=== PATIENT | female | born 1945 | race Caucasian/White ===

== ENCOUNTER 2016-08-05 10:08 | Inpatient (IN) | payer MEDICARE ==
[~2016-08-05 10:08] MED LIST: AMIODARONE HCL200 M1 PO; ASPIR 8181 M1 PO; ATORVASTATIN CA80 M1 PO; AUGMENTIN 875-1 EAC2 PO; AUGMENTIN875 MG PO; BENADRYL25 M3 PO; BYSTOLIC10 M1 PO; BYSTOLIC20 M1 PO; CELEBREX200 MG PO; CETIRIZINE HCL10 M1 PO; CHLORTHALIDONE25 M1 PO; COMPAZINE10 MG PO; CRESTOR10 MG/TAB PO; CULTURELLE1 CA1 PO; CYCLOBENZAPRINE5 M1 PO; DULOXETINE HCL60 M1 PO; HYDROCODON-ACE1 EA16 PO; LINZESS145 MC1 PO; LOSARTAN POTAS100 M1 PO; LOSARTAN POTASS50 M1 PO; LOSARTAN-HCTZ1 EAC1 PO; LOVENOX40 MG/0.1 SC; MELOXICAM15 MG PO; METFORMIN HCL1000 M1 PO; METFORMIN HCL500 M4 PO; METOPROLOL SUCC25 M1 PO; NORCO 5-325 TA1 EACH PO; NORCO 5/325 TAB1 TAB PO; NORCO 5/3251 TAB PO; NORVASC10 M1 PO; OXYCODONE/APAP PO; POTASSIUM CHLO10 MEQ PO; POTASSIUM CHLO20 ME3 PO; PROTONIX40 M2 PO; SENOKOT-S TABL1 EACH PO; SMZ-TMP DS 800-1 TAB PO; TORSEMIDE20 M2 PO; TRAMADOL HCL50 M2 PO; TRILIPIX135 MG PO; TYLENOL325 M2 PO; ULTRAM50 M1 PO; XARELTO15 MG PO; XARELTO20 M1 PO; XARELTO20 MG PO; ZIAC PO; ZOFRAN8 M1 PO; [UNRECOGNIZED DRUG - OTHER] PO
[2016-08-05] MEDS ORDERED: SENOKOT8.6 M1 PO (12:58)
[2016-08-05] MEDS ORDERED: COZAAR100 M1 PO (12:58)
[2016-08-05] MEDS ORDERED: PROTONIX40 M2 PO (12:58)
[2016-08-06 05:17] LABS: BASO % 0.4 % (0-2); EOS % 0.8 % (0-7); HGB-HEMOGLOBIN 6.9 gm/dl (12.0-15.5); IMMATURE GRANULOCYTES ABSOLUTE 0.01 tho/cmm (0-0.03); IMMATURE GRANULOCYTES PERCENT 0.4 % (0-0.3); LYMPH % 13.3 % (20-45); LYMPH ABSOLUTE COUNT 0.4 tho/cmm (0.8-4.5); MCH (MEAN CORPUSCULAR HGB) 26.4 pg (28.0-32.0); MCV (MEAN CELL VOLUME) 84.7 fl (82.0-96.0); MEAN PLATELET VOLUME 11.4 cmc (9.4-12.4); MONO % 17.9 % (0-12); MONOCYTE ABSOLUTE COUNT 0.5 tho/cmm (0.0-1.2); NEUTROPHIL ABSOLUTE COUNT 1.8 tho/cmm (1.6-8.0); NEUTROPHIL-AUTOMATED 1.8 tho/cmm (1.6-8.0); NEUTROPHILS % 67.2 % (40-80); PLATELET COUNT 100 tho/cmm (150-450); RED BLOOD COUNT 2.61 mil/cmm (4.00-5.20); RED CELL DISTRIBUTION WIDTH 16.8 % (12.4-16.4); WHITE BLOOD COUNT 2.6 tho/cmm (4.0-10.0)
[2016-08-06 05:24] LABS: INR 1.5 INR (0.9-1.1); PROTHROMBIN TIME 17.5 SECONDS (9.0-13.6)
[2016-08-06 05:31] LABS: ALT/SGPT 13 U/L (12-78); ANION GAP 14 mmol/L (0-20); BLOOD UREA NITROGEN 16 mg/dl (6-24); CALCIUM 7.3 mg/dl (8.5-10.5); CARBON DIOXIDE-VENOUS 24 mmol/L (22-32); CHLORIDE 108 mmol/l (96-110); GLUCOSE 118 mg/dL (70-110); POTASSIUM 3.1 mmol/L (3.7-5.1); SODIUM 143 mmol/L (135-145)
[2016-08-06 05:33] LABS: ALB/GLOB RATIO 0.7 (0.8-2.0); ALKALINE PHOSPHATASE 109 U/L (33-138); AST/SGOT 18 U/L (10-40); BILIRUBIN,TOTAL 0.9 mg/dl (0-1.5); CREATININE 0.87 mg/dl (0.50-1.10); eGFR VALUE FOR BLACK 79 mL/Min
[2016-08-06 05:37] LABS: ALBUMIN 1.6 g/dl (3.5-5.0)
[2016-08-06 05:42] LABS: HCT-HEMATOCRIT 22.1 % (34.0-49.0); MCHC MEAN CORPUSCULAR HGB CONC 31.2 % (32.0-36.0)
[2016-08-06 15:15] LABS: HGB-HEMOGLOBIN 8.8 gm/dl (12.0-15.5)
[2016-08-07 06:28] LABS: BASO % 0.2 % (0-2); HGB-HEMOGLOBIN 9.2 gm/dl (12.0-15.5); IMMATURE GRANULOCYTES ABSOLUTE 0.01 tho/cmm (0-0.03); IMMATURE GRANULOCYTES PERCENT 0.2 % (0-0.3); LYMPH % 10.5 % (20-45); LYMPH ABSOLUTE COUNT 0.5 tho/cmm (0.8-4.5); MCH (MEAN CORPUSCULAR HGB) 26.7 pg (28.0-32.0); MCHC MEAN CORPUSCULAR HGB CONC 31.3 % (32.0-36.0); MCV (MEAN CELL VOLUME) 85.2 fl (82.0-96.0); MEAN PLATELET VOLUME 11.2 cmc (9.4-12.4); MONO % 9.8 % (0-12); MONOCYTE ABSOLUTE COUNT 0.5 tho/cmm (0.0-1.2); NEUTROPHIL ABSOLUTE COUNT 3.6 tho/cmm (1.6-8.0); NEUTROPHIL-AUTOMATED 3.6 tho/cmm (1.6-8.0); NEUTROPHILS % 79.3 % (40-80); PLATELET COUNT 112 tho/cmm (150-450); RED BLOOD COUNT 3.45 mil/cmm (4.00-5.20); RED CELL DISTRIBUTION WIDTH 16.7 % (12.4-16.4)
[2016-08-07 06:38] LABS: HCT-HEMATOCRIT 29.4 % (34.0-49.0); WHITE BLOOD COUNT 4.6 tho/cmm (4.0-10.0)
[2016-08-07 07:00] LABS: ANION GAP 13 mmol/L (0-20); BLOOD UREA NITROGEN 15 mg/dl (6-24); CALCIUM 7.8 mg/dl (8.5-10.5); CARBON DIOXIDE-VENOUS 23 mmol/L (22-32); CHLORIDE 111 mmol/l (96-110); CREATININE 0.91 mg/dl (0.50-1.10); GLUCOSE 151 mg/dL (70-110); POTASSIUM 3.6 mmol/L (3.7-5.1); SODIUM 143 mmol/L (135-145); eGFR VALUE FOR BLACK 75 mL/Min
[2016-08-08 04:59] LABS: BASO % 0.2 % (0-2); EOS % 0.2 % (0-7); HCT-HEMATOCRIT 26.5 % (34.0-49.0); HGB-HEMOGLOBIN 8.4 gm/dl (12.0-15.5); IMMATURE GRANULOCYTES ABSOLUTE 0.01 tho/cmm (0-0.03); IMMATURE GRANULOCYTES PERCENT 0.2 % (0-0.3); LYMPH ABSOLUTE COUNT 0.6 tho/cmm (0.8-4.5); MCH (MEAN CORPUSCULAR HGB) 27.1 pg (28.0-32.0); MCHC MEAN CORPUSCULAR HGB CONC 31.7 % (32.0-36.0); MCV (MEAN CELL VOLUME) 85.5 fl (82.0-96.0); MEAN PLATELET VOLUME 11.1 cmc (9.4-12.4); MONO % 12.6 % (0-12); MONOCYTE ABSOLUTE COUNT 0.6 tho/cmm (0.0-1.2); NEUTROPHIL ABSOLUTE COUNT 3.6 tho/cmm (1.6-8.0); NEUTROPHIL-AUTOMATED 3.6 tho/cmm (1.6-8.0); NEUTROPHILS % 74.8 % (40-80); PLATELET COUNT 107 tho/cmm (150-450); RED CELL DISTRIBUTION WIDTH 16.8 % (12.4-16.4); WHITE BLOOD COUNT 4.8 tho/cmm (4.0-10.0)
[2016-08-08] MEDS ORDERED: CARAFATE1 G2 PO (09:44)
[2017-02-23] MEDS ORDERED: ULTRAM50 M1 PO (16:22)
[2017-02-23] MEDS ORDERED: SILVADENE20 G1 TOP (16:22)
[2017-02-23] MEDS ORDERED: CYMBALTA60 M1 PO (16:22)
[2017-03-03] MEDS ORDERED: IPRAT-ALBUT 0.5-3 ML NEB (12:27)
[2017-03-03] MEDS ORDERED: FEOSOL325 M1 PO (12:29)
[2017-03-03] MEDS ORDERED: ELIQUIS5 M1 PO (12:29)
[2017-03-03] MEDS ORDERED: COLACE100 M1 PO (12:31)
== END 2016-08-08 11:20 | DRG 300 ==
LOC: PCUB 10:08
PROVIDERS: Hospitalist; Internal Medicine; Nurse Practitioner; ADMIT Internal Medicine
PROC: 30233N1 Transfusion of Nonautologous Red Blood Cells into Peripheral Vein, Percutaneous Approach (ICD-10-PCS; 2016-08-05)
PROC: 0DJ08ZZ Inspection of Upper Intestinal Tract, Via Natural or Artificial Opening Endoscopic (ICD-10-PCS; principal; 2016-08-06)
PROC: 0W3P8ZZ Control Bleeding in Gastrointestinal Tract, Via Natural or Artificial Opening Endoscopic (ICD-10-PCS; 2016-08-06)
PROC: 30233N1 Transfusion of Nonautologous Red Blood Cells into Peripheral Vein, Percutaneous Approach (ICD-10-PCS; 2016-08-06)
PROC: 30233N1 Transfusion of Nonautologous Red Blood Cells into Peripheral Vein, Percutaneous Approach (ICD-10-PCS; 2016-08-06)
DX: Q27.33 Arteriovenous malformation of digestive system vessel (principal); D62 Acute posthemorrhagic anemia; E46 Unspecified protein-calorie malnutrition; D61.818 Other pancytopenia; D69.6 Thrombocytopenia, unspecified; C23 Malignant neoplasm of gallbladder; Z68.41 Body mass index [BMI] 40.0-44.9, adult; I48.0 Paroxysmal atrial fibrillation; E87.6 Hypokalemia; D64.9 Anemia, unspecified; E66.09 Other obesity due to excess calories; I25.10 Atherosclerotic heart disease of native coronary artery without angina pectoris; Z79.01 Long term (current) use of anticoagulants; I25.2 Old myocardial infarction; Z86.718 Personal history of other venous thrombosis and embolism; Z86.711 Personal history of pulmonary embolism; Z85.41 Personal history of malignant neoplasm of cervix uteri
CPT/HCPCS: C1751; C9113; J3480; P9016

== ENCOUNTER 2016-08-23 14:06 | Inpatient (IN) | payer MEDICARE ==
[~2016-08-23 14:06] MED LIST changes: +CARAFATE1 G2 PO; +COZAAR100 M1 PO; +SENOKOT8.6 M1 PO
[2016-08-23] MEDS ORDERED: TOPROL XL25 M1 PO (18:14)
[2016-08-23] MEDS ORDERED: AMIODARONE HCL200 M1 PO (18:15)
[2016-08-23] MEDS ORDERED: GLUCOPHAGE500 M3 PO (18:16)
[2016-08-23] MEDS ORDERED: CHLORTHALIDONE25 M1 PO (18:27)
[2016-08-24 06:55] LABS: BASO % 0.2 % (0-2); EOS % 2.2 % (0-7); EOSINOPHIL ABSOLUTE COUNT 0.1 tho/cmm (0.0-0.7); HCT-HEMATOCRIT 28.5 % (34.0-49.0); HGB-HEMOGLOBIN 8.6 gm/dl (12.0-15.5); IMMATURE GRANULOCYTES ABSOLUTE 0.01 tho/cmm (0-0.03); IMMATURE GRANULOCYTES PERCENT 0.2 % (0-0.3); LYMPH % 13.2 % (20-45); LYMPH ABSOLUTE COUNT 0.6 tho/cmm (0.8-4.5); MCH (MEAN CORPUSCULAR HGB) 25.1 pg (28.0-32.0); MCHC MEAN CORPUSCULAR HGB CONC 30.2 % (32.0-36.0); MCV (MEAN CELL VOLUME) 83.1 fl (82.0-96.0); MEAN PLATELET VOLUME 9.5 cmc (9.4-12.4); MONO % 8.2 % (0-12); MONOCYTE ABSOLUTE COUNT 0.3 tho/cmm (0.0-1.2); NEUTROPHIL ABSOLUTE COUNT 3.2 tho/cmm (1.6-8.0); NEUTROPHIL-AUTOMATED 3.2 tho/cmm (1.6-8.0); PLATELET COUNT 161 tho/cmm (150-450); RED BLOOD COUNT 3.43 mil/cmm (4.00-5.20); RED CELL DISTRIBUTION WIDTH 16.6 % (12.4-16.4); WHITE BLOOD COUNT 4.2 tho/cmm (4.0-10.0)
[2016-08-24 07:05] LABS: ALB/GLOB RATIO 0.5 (0.8-2.0); ALBUMIN 1.5 g/dl (3.5-5.0); ALKALINE PHOSPHATASE 121 U/L (33-138); ALT/SGPT 16 U/L (12-78); ANION GAP 10 mmol/L (0-20); AST/SGOT 20 U/L (10-40); BILIRUBIN,TOTAL 0.8 mg/dl (0-1.5); BLOOD UREA NITROGEN 13 mg/dl (6-24); CALCIUM 7.6 mg/dl (8.5-10.5); CARBON DIOXIDE-VENOUS 26 mmol/L (22-32); CHLORIDE 115 mmol/l (96-110); CREATININE 0.95 mg/dl (0.50-1.10); GLUCOSE 117 mg/dL (70-110); POTASSIUM 3.8 mmol/L (3.7-5.1); SODIUM 147 mmol/L (135-145); eGFR VALUE FOR BLACK 71 mL/Min
[2016-08-24] MEDS ORDERED: CYMBALTA60 M1 PO (10:13)
[2016-08-25 15:44] LABS: BODY FLUID APPEARANCE CLOUDY (CLEAR); BODY FLUID COLOR YELLOW (COLORLESS); BODY FLUID RBC COUNT <1000 cmm (0); BODY FLUID VOLUME 1000 ml; BODY FLUID WBC COUNT 40 cmm
[2016-08-26 09:18] LABS: BODY FLUID TYPE ASCITIC; FLUID ALBUMIN <0.6 g/dl
[2016-08-27 05:32] LABS: HGB-HEMOGLOBIN 8.5 gm/dl (12.0-15.5); PLATELET COUNT 169 tho/cmm (150-450)
[2016-08-27 05:52] LABS: ANION GAP 11 mmol/L (0-20); BLOOD UREA NITROGEN 14 mg/dl (6-24); CALCIUM 7.5 mg/dl (8.5-10.5); CARBON DIOXIDE-VENOUS 30 mmol/L (22-32); CHLORIDE 104 mmol/l (96-110); CREATININE 0.96 mg/dl (0.50-1.10); GLUCOSE 120 mg/dL (70-110); MAGNESIUM 1.4 mg/dl (1.3-2.6); SODIUM 142 mmol/L (135-145); eGFR VALUE FOR BLACK 70 mL/Min
[2016-08-27] MEDS ORDERED: ALDACTONE25 M1 PO (14:24)
[2016-08-27] MEDS ORDERED: LASIX40 M1 PO (14:40)
[2017-02-23] MEDS ORDERED: ULTRAM50 M1 PO (16:22)
[2017-02-23] MEDS ORDERED: CYMBALTA60 M1 PO (16:22)
[2017-02-23] MEDS ORDERED: SILVADENE20 G1 TOP (16:22)
[2017-03-03] MEDS ORDERED: IPRAT-ALBUT 0.5-3 ML NEB (12:27)
[2017-03-03] MEDS ORDERED: ELIQUIS5 M1 PO (12:29)
[2017-03-03] MEDS ORDERED: FEOSOL325 M1 PO (12:29)
[2017-03-03] MEDS ORDERED: COLACE100 M1 PO (12:31)
== END 2016-08-27 19:45 | DRG 948 ==
LOC: 5WE 14:06
PROVIDERS: ADMIT Internal Medicine
PROC: 0W9G3ZX Drainage of Peritoneal Cavity, Percutaneous Approach, Diagnostic (ICD-10-PCS; principal; 2016-08-25)
DX: R18.8 Other ascites (principal); R64 Cachexia; C24.8 Malignant neoplasm of overlapping sites of biliary tract; Z68.42 Body mass index [BMI] 45.0-49.9, adult; I48.0 Paroxysmal atrial fibrillation; E11.9 Type 2 diabetes mellitus without complications; E78.5 Hyperlipidemia, unspecified; I25.2 Old myocardial infarction; E66.01 Morbid (severe) obesity due to excess calories; I87.2 Venous insufficiency (chronic) (peripheral); I25.10 Atherosclerotic heart disease of native coronary artery without angina pectoris; Z86.711 Personal history of pulmonary embolism; Z79.01 Long term (current) use of anticoagulants
CPT/HCPCS: C1729; J1650; J1940